=== PATIENT | female | born 2000 | race Caucasian/White ===

== ENCOUNTER 2019-06-08 06:24 | Day surgery (SDC) | payer OTHER ==
[2019-06-07 11:46] VITALS: BMI 21.0
[~2019-06-08 06:24] MED LIST: DEXAMETHASONE SOD PHOSPHATE 10 MG/ML 1 ML VIAL IV ONE; HEPARIN SODIUM,PORCINE 5,000 UNIT/ML 1 ML VIAL SQ ONE; KETOROLAC 30 MG/ML 1 ML VIAL IVP SCH; LACTATED RINGERS 1,000 ML IV SCH; LIDOCAINE 1% 20 ML VIAL (10MG/ML) FOR IV START INTRADERMA PRN; MORPHINE SULFATE 2 MG/ML SYRINGE IV PRN; ONDANSETRON 4 MG/2 ML VIAL IVP ONE; ONDANSETRON 4 MG/2 ML VIAL IVP PRN; Pre Op ABX Message 1 EACH MISC MISCELLANE ONE
[2019-06-08 07:07] VITALS: BP 112/59; PULSE 71; RESP 16; TEMP 97.8
[2019-06-08] MEDS ORDERED: MIDAZOLAM (PF) 2 MG/2 ML VIAL IV ONE (07:12)
[2019-06-08] MEDS ORDERED: SCOPOLAMINE 1.5MG/72HR PATCH TRANSDERM ONE (07:16)
--- NOTE | 2019-06-08 08:00 | P.PN ---
Progress Note - Text Progress Note Date: 06/08/19 The patient's chest wall mass was reexamined. The mass appears to have resolved. I explained patient's family is most likely a cyst. The patient will be discharged home. Her surgical procedure was canceled. She will follow-up in the office as needed.
== END 2019-06-08 08:05 | disposition home or self-care (01) ==
LOC: OR 06:24
PROVIDERS: ATTEND Surgery
DX: D17.1 Benign lipomatous neoplasm of skin and subcutaneous tissue of trunk (principal); Z53.8 Procedure and treatment not carried out for other reasons
CPT/HCPCS: 11400; J1644; J1100; J2405; J2250

== ENCOUNTER 2023-04-15 23:05 | Emergency (ER) | payer OTHER ==
[2023-04-15 23:13] VITALS: RESP 18; TEMP 98.9
[2023-04-16] MEDS ORDERED: AMOXIC-POT CLAV 875-125MG 1 EACH TAB PO STA (00:25)
[2023-04-16] MEDS ORDERED: CYCLOBENZAPRINE 10MG STARTER 3 TAB BTL PO STA (00:25)
--- NOTE | 2023-04-16 00:25 | ED ---
General Adult HPI - General Chief complaint: Dental/Oral Stated complaint: Headache, dental pain Time Seen by Provider: 04/15/23 23:22 Source: family Mode of arrival: ambulatory Limitations: no limitations - History of Present Illness Initial comments: 21-year-old female presenting with chief complaint of headache. Headache has been intermittent for several days. States that the pain goes down the right side of her neck and feels it up and tightening around her head. She also admits to dental pain on the right side. She has a known dental carry to the right lower molar. No fever, chills, difficulty breathing or swallowing, vision or hearing changes, numbness, tingling, weakness. She has full range of motion of the neck. No URI-like symptoms. - Related Data Home Medications Medication Instructions Recorded Confirmed Etonogestrel [Nexplanon] 1 implant SQ [id number] 06/07/19 06/08/19 Previous Rx's Medication Instructions Recorded Amoxic-Pot Clav 875-125Mg 1 tab PO Q12HR 7 Days #14 tab 04/16/23 [Augmentin 875-125] Cyclobenzaprine [Flexeril] 10 mg PO HS PRN #15 tab 04/16/23 Allergies Allergy/AdvReac Type Severity Reaction Status Date / Time No Known Allergies Allergy Verified 04/15/23 23:13 Review of Systems ROS Statement: Those systems with pertinent positive or pertinent negative responses have been documented in the HPI. ROS Other: All systems not noted in ROS Statement are negative. Past Medical History Past Medical History: No Reported History Additional Past Medical History / Comment(s): PRES History of Any Multi-Drug Resistant Organisms: None Reported Past Surgical History: Section Past Anesthesia/Blood Transfusion Reactions: Previous Problems w/ Anesthesia Additional Past Anesthesia/Blood Transfusion Reaction / Comment(s): took a little longer to come out after C/S(had general anesthesia) Past Psychological History: No Psychological Hx Reported Smoking Status: Never smoker Past Alcohol Use History: None Reported Past Drug Use History: None Reported - Past Family History Mother Family Medical History: Cancer Additional Family Medical History / Comment(s): skin General Exam Limitations: no limitations General appearance: alert, in no apparent distress Head exam: Present: atraumatic, normocephalic, normal inspection Eye exam: Present: normal appearance, PERRL, EOMI. Absent: scleral icterus, conjunctival injection, periorbital swelling Expanded Mouth exam: Present: tongue normal. Absent: drooling, trismus, muffled voice Teeth exam: Present: dental caries Throat exam: normal inspection Neck exam: Present: normal inspection, tenderness (Right paraspinal muscles no midline tenderness), full ROM Respiratory exam: Present: normal lung sounds bilaterally. Absent: respiratory distress, wheezes, rales, rhonchi, stridor Cardiovascular Exam: Present: regular rate, normal rhythm, normal heart sounds. Absent: systolic murmur, diastolic murmur, rubs, gallop, clicks Neurological exam: Present: alert, oriented X3, CN II-XII intact Psychiatric exam: Present: normal affect, normal mood Skin exam: Present: warm, dry, intact, normal color. Absent: rash Course Vital Signs 04/15/23 04/16/23 23:10 00:39 Temperature 98.9 F Pulse Rate 102 H 95 Respiratory 18 18 Rate Blood Pressure 135/9 128/68 O2 Sat by Pulse 100 99 Oximetry Medical Decision Making - Medical Decision Making Was pt. sent in by a medical professional or institution (, PA, [facility]ARE [facility]OC[facility], urgent care, hospital, or halfway...) When possible be specific @ -No Did you speak to anyone other than the patient for history (EMS, parent, family, police, friend...)? What history was obtained from this source @ -No Did you review nursing and triage notes (agree or disagree)? Why? @ -I reviewed and agree with nursing and triage notes Were old charts reviewed (outside hosp., previous admission, EMS record, old EKG, old radiological studies, urgent care reports/EKG's, halfway records)? Report findings @ -No old charts were reviewed Differential Diagnosis (chest pain, altered mental status, abdominal pain women, abdominal pain men, vaginal bleeding, weakness, fever, dyspnea, syncope, headache, dizziness, GI bleed, back pain, seizure, CVA, palpatations, mental health, musculoskeletal)? @ -MDM Differential Headache: Migraine, tension, cluster, carbon monoxide, central venous thrombosis, pension karma temporal arteritis, acute closure glaucoma, intercranial hemorrhage, mastoiditis, sinusitis, head injury this is not meant to be an all-inclusive list. EKG interpreted by me (3pts min.). @ -As above X-rays interpreted by me (1pt min.). @ -None done CT interpreted by me (1pt min.). @ -None done U/S interpreted by me (1pt. min.). @ -None done What testing was considered but not performed or refused? (CT, X-rays, U/S, labs)? Why? @ -None What meds were considered but not given or refused? Why? @ -None Did you discuss the management of the patient with other professionals (professionals i.e. , PA, CARE ADVOCATE, lab, RT, psych nurse, social insurance administrator, diesel technician, teacher, police officer booking, manager rn case)? Give summary @ -No Was smoking cessation discussed for >3mins.? @ -No Was critical care preformed (if so, how long)? @ -No Were there social determinants of health that impacted care today? How? (Homelessness, low income, unemployed, alcoholism, drug addiction, transportation, low edu. Level, literacy, decrease access to med. care, prison, rehab)? @ -No Was there de-escalation of care discussed even if they declined (Discuss DNR or withdrawal of care, Hospice)? DNR status @ -No What co-morbidities impacted this encounter? (DM, HTN, Smoking, COPD, CAD, Cancer, CVA, ARF, Chemo, Hep., AIDS, mental health diagnosis, sleep apnea, morbid obesity)? @ -None Was patient admitted / discharged? Hospital course, mention meds given and route, prescriptions, significant lab abnormalities, going to OR and other pertinent info. @ -[id number] female presenting with chief complaint of headache and dental pain. On physical examination there is right-sided paraspinal muscle tenderness in the cervical region, no midline tenderness. Patient has full range of motion of the neck and is able to touch chin to chest without difficulty. No fevers or chills. Dental caries noted with large caries noted to the right lower molar. Patient is likely experiencing symptoms of tension headache, muscle spasm felt on palpation of the neck and she is given Flexeril for home. Also treating for potential dental abscess with augmentin, states that she is trying to get with her dentist. Follow-up with PCP. Report back to ER with any new or worsening symptoms. Discussed return parameters and answered all questions. Patient conveyed verbal understanding and agreed to the plan. I discussed this case in detail with my attending Dr. Goodman Undiagnosed new problem with uncertain prognosis? @ -No Drug Therapy requiring intensive monitoring for toxicity (Heparin, Nitro, Insulin, Cardizem)? @ -No Were any procedures done? @ -No Diagnosis/symptom? @ -tension headache, dental abscess Acute, or Chronic, or Acute on Chronic? @ -Acute Uncomplicated (without systemic symptoms) or Complicated (systemic symptoms)? @ -Uncomplicated Side effects of treatment? @ -No Exacerbation, Progression, or Severe Exacerbation? @ -No Poses a threat to life or bodily function? How? (Chest pain, [place], GA, pneumonia, PE, COPD, DKA, ARF, appy, cholecystitis, CVA, Diverticulitis, Homicidal, Suicidal, threat to staff... and all critical care pts) @ -No Disposition Clinical Impression: Tension headache, Dental abscess Disposition: HOME SELF-CARE Condition: Good Instructions (If sedation given, give patient instructions): Dental Abscess (ED), Tension Headache (ED), Toothache (ED) Additional Instructions: Follow-up with PCP and dentist. Report back to ER with any new or worsening symptoms. Take medication as prescribed. Do not take cyclobenzaprine before driving or operating heavy machinery as it may cause drowsiness. Prescriptions: Amoxic-Pot Clav 875-125Mg [Augmentin 875-125] 1 tab PO Q12HR 7 Days #14 tab Cyclobenzaprine [Flexeril] 10 mg PO HS PRN #15 tab PRN Reason: Spasms Is patient prescribed a controlled substance at d/c from ED?: No Referrals: Nishant Price MD [Primary Care Provider] - 1-2 days Forms: [employer] Time of Disposition: 00:25
[2023-04-16 01:16] VITALS: BP 128/68; PULSE 95
== END 2023-04-16 00:39 | disposition home or self-care (01) ==
LOC: EC 23:05
DX: G44.209 Tension-type headache, unspecified, not intractable (principal); K04.7 Periapical abscess without sinus
CPT/HCPCS: 99283

== ENCOUNTER 2023-04-19 12:14 | Emergency (ER) | payer OTHER ==
[2023-04-19] MEDS ORDERED: KETOROLAC 15 MG/ML 1 ML VIAL IVP STA (13:06)
[2023-04-19] MEDS ORDERED: AMPICILLIN-SULBACTAM 3 GM in SODIUM CHLORIDE 0.9% 100 ML IVPB STA (13:06)
[2023-04-19] MEDS ORDERED: ONDANSETRON 4 MG/2 ML VIAL IVP STA (13:06)
--- NOTE | 2023-04-19 13:13 | ED ---
ENT HPI - General Chief complaint: Dental/Oral Stated complaint: Antibiotic By IV,called ahead Time Seen by Provider: 04/19/23 12:44 Source: patient, RN notes reviewed Mode of arrival: ambulatory Limitations: no limitations - History of Present Illness Initial comments: This is a 22-year-old female who presents to the emergency department for dental pain and IV antibiotics. Patient was evaluated here 3 days ago for a headache and diagnosed with a muscle strain as well as a right dental abscess. She was started on Flexeril and Augmentin. Prior to her visit here, she had gone to [facility] 4 times. Each time she had blood work done and during 2 of the visits had CT scans of her head, all revealing no acute findings. Patient was told that she had migraines and was discharged home without any answers, which prompted her to come to the emergency department here 3 days ago and she did follow up with oral surgery earlier today. States that she started to develop visual changes in the right eye and hearing loss in the right ear. She communicated these findings to her oral surgeon, who advised that she needed to get a dose of IV antibiotics in the emergency department due to concern for permanent nerve damage. He said that he would not remove her teeth until receiving IV antibiotics. She sees an oral surgeon at [facility] in [place], [place], but does not recall who she sees. Currently complaining of severe pain as well as nausea. Denies any fevers, chills, sore throat, cough, dyspnea, chest pain, palpitations, abdominal pain, vomiting, diarrhea, or back pain. MD complaint: tooth pain - Related Data Home Medications Medication Instructions Recorded Confirmed Etonogestrel [Nexplanon] 1 implant SQ [id number] 06/07/19 06/08/19 Previous Rx's Medication Instructions Recorded Amoxic-Pot Clav 875-125Mg 1 tab PO Q12HR 7 Days #14 tab 04/16/23 [Augmentin 875-125] Cyclobenzaprine [Flexeril] 10 mg PO HS PRN #15 tab 04/16/23 Allergies Allergy/AdvReac Type Severity Reaction Status Date / Time diphenhydramine AdvReac Unknown Verified 04/19/23 12:44 [From Benmarianl] Review of Systems ROS Statement: Those systems with pertinent positive or pertinent negative responses have been documented in the HPI. ROS Other: All systems not noted in ROS Statement are negative. Past Medical History Past Medical History: No Reported History Additional Past Medical History / Comment(s): PRES History of Any Multi-Drug Resistant Organisms: None Reported Past Surgical History: Section Past Anesthesia/Blood Transfusion Reactions: Previous Problems w/ Anesthesia Additional Past Anesthesia/Blood Transfusion Reaction / Comment(s): took a little longer to come out after C/S(had general anesthesia) Past Psychological History: No Psychological Hx Reported Smoking Status: Never smoker Past Alcohol Use History: None Reported Past Drug Use History: None Reported - Past Family History Mother Family Medical History: Cancer Additional Family Medical History / Comment(s): skin General Exam Limitations: no limitations General appearance: alert, in no apparent distress Head exam: Present: atraumatic, normocephalic, normal inspection ENT exam: Present: other (Palpable right-sided dental abscess and fullness to the right cheek. No tongue elevation or swelling of the floor of the mouth.) Respiratory exam: Present: normal lung sounds bilaterally. Absent: respiratory distress, wheezes, rales, rhonchi, stridor Cardiovascular Exam: Present: regular rate, normal rhythm, normal heart sounds. Absent: systolic murmur, diastolic murmur, rubs, gallop, clicks Neurological exam: Present: alert, oriented X3, CN II-XII intact Psychiatric exam: Present: normal affect, normal mood Skin exam: Present: warm, dry, intact, normal color. Absent: rash Course Vital Signs 04/19/23 04/19/23 12:38 15:02 Temperature 99.6 F 99.0 F Pulse Rate 90 81 Respiratory 18 16 Rate Blood Pressure 113/80 109/74 O2 Sat by Pulse 98 100 Oximetry Medical Decision Making - Medical Decision Making This is a 22-year-old female who presents to the emergency department for dental pain and IV antibiotics. Was pt. sent in by a medical professional or institution? @ -No Did you speak to anyone other than the patient for history? @ -No Did you review nursing and triage notes? @ -Yes, and I agree, it is accurate with regards to the patient's symptoms. Were old charts reviewed? @ -No Differential Diagnosis? @ -Differential Dental Pain: Dental abscess, chipped tooth, dental carries, rachel's angina, trigeminal neuralgia, this is not meant to be an all-inclusive list. EKG interpreted by me (3pts min.)? @ -Not obtained X-rays interpreted by me (1pt min.)? @ -Not obtained CT interpreted by me (1pt min.)? @ -Not obtained U/S interpreted by me (1pt. min.)? @ -Not obtained What testing was considered but not performed? (CT, X-rays, U/S, labs)? Why? @ -None What meds were considered but not given? Why? @ -None Did you discuss the management of the patient with other professionals? @ -No Did you reconcile home meds? @ -No Was smoking cessation discussed for >3mins.? @ -No Was critical care preformed (if so, how long)? @ -No Were there social determinants of health that impacted care today? How? (Homel essness, low income, unemployed, alcoholism, drug addiction, transportation, low edu. Level, literacy, decrease access to med. care, senior living, rehab)? @ -No Was there de-escalation of care discussed even if they declined? (Discuss DNR or withdrawal of care, Hospice)? @ -No What co-morbidities impacted this encounter? (DM, HTN, Smoking, COPD, CAD, Cancer, CVA, Hep., AIDS, mental health diagnosis, sleep apnea, morbid obesity)? @ -None Was patient admitted / discharged? @ -Discharged. Lab work obtained and found to be nonactionable. She was given a dose of IV Unasyn in the emergency department as requested. She was also given a dose of Toradol, but is unsure if this was helpful. Patient requested discharge home after the Unasyn, and she is instructed to continue taking the Augmentin as prescribed and to alternate with ibuprofen and Tylenol as needed for pain relief. She'll otherwise follow up with oral surgery for definitive management. Undiagnosed new problem with uncertain prognosis? @ -None Drug Therapy requiring intensive monitoring for toxicity (Heparin, Nitro, Insulin, Cardizem)? @ -None Were any procedures done? @ -None Diagnosis/symptom? @ -Dental abscess Acute, or Chronic, or Acute on Chronic? @ -Acute Uncomplicated (without systemic symptoms) or Complicated (systemic symptoms)? @ -Uncomplicated Side effects of treatment? @ -None Exacerbation, Progression, or Severe Exacerbation] @ -Not applicable Poses a threat to life or bodily function? @ -No Return precautions reviewed in depth, the patient is instructed to return to the emergency department with any new, worsening, or concerning symptoms. Patient verbalized understanding. This case was discussed in detail with the attending ED physician, Dr. Hoyt. Presentation, findings, and treatment plan discussed in detail as well. - Lab Data Result diagrams: 04/19/23 13:17 Lab Results 04/19/23 04/19/23 Range/Units 13:17 13:17 WBC 8.2 (3.8-10.6) k/uL RBC 4.54 (3.80-5.40) m/uL Hgb 13.0 (11.4-16.0) gm/dL Hct 37.3 (34.0-46.0) % MCV 82.1 (80.0-100.0) fL MCH 28.7 (25.0-35.0) pg MCHC 35.0 (31.0-37.0) g/dL RDW 12.7 (11.5-15.5) % Plt Count 187 (150-450) k/uL MPV 7.6 Neutrophils % 61 % Lymphocytes % 32 % Monocytes % 5 % Eosinophils % 1 % Basophils % 0 % Neutrophils # 5.0 (1.3-7.7) k/uL Lymphocytes # 2.7 (1.0-4.8) k/uL Monocytes # 0.4 (0-1.0) k/uL Eosinophils # 0.1 (0-0.7) k/uL Basophils # 0.0 (0-0.2) k/uL Plasma Lactic Acid Dez 0.7 (0.7-2.0) mmol/L Disposition Clinical Impression: Dental abscess Disposition: HOME SELF-CARE Instructions (If sedation given, give patient instructions): Dental Abscess (ED) Additional Instructions: Return to the emergency department with any new, worsening, or concerning symptoms. Alternate with ibuprofen and Tylenol as needed for pain relief. Follow-up with your oral surgeon for definitive management. Is patient prescribed a controlled substance at d/c from ED?: No Referrals: Nishant Price MD [Primary Care Provider] - 1-2 days
[2023-04-19 13:55] LABS: Basophils % (A) 0 %; Eosinophils # (A) 0.1 k/uL (0-0.7); Eosinophils % (A) 1 %; HCT 37.3 % (34.0-46.0); Lymphocytes # (A) 2.7 k/uL (1.0-4.8); Lymphocytes % (A) 32 %; MCH 28.7 pg (25.0-35.0); MCV 82.1 fL (80.0-100.0); Mean Platelet Volume 7.6; Monocytes # (A) 0.4 k/uL (0-1.0); Monocytes % (A) 5 %; Neutrophils % (A) 61 %; Platelet Count 187 k/uL (150-450); RBC 4.54 m/uL (3.80-5.40); RDW 12.7 % (11.5-15.5); WBC 8.2 k/uL (3.8-10.6)
[2023-04-19 14:23] LABS: ALT 13 U/L (4-34); AST 17 U/L (14-36); African American GFR (CKD) >90 (>60 ml/min/1.73 sqM); Albumin 4.2 g/dL (3.5-5.0); Alkaline Phosphatase 56 U/L (38-126); Anion Gap 8 mmol/L; Blood Urea Nitrogen 16 mg/dL (7-17); C Reactive Protein <0.5 mg/dL (<1.0); Calcium 9.1 mg/dL (8.4-10.2); Carbon Dioxide 24 mmol/L (22-30); Chloride 106 mmol/L (98-107); Glucose 87 mg/dL (74-99); Non-African American GFR(CKD) >90 (>60 ml/min/1.73 sqM); Potassium 3.8 mmol/L (3.5-5.1); Sodium 138 mmol/L (137-145); Total Bilirubin 0.6 mg/dL (0.2-1.3); Total Protein 7.3 g/dL (6.3-8.2)
[2023-04-19] MEDS ORDERED: ACET/COD 300 MG/30 MG STARTER PACK 6 TAB BTL PO STA (14:46)
[2023-04-19] MEDS ORDERED: IBUPROFEN 600 MG STARTER PACK 4 TAB BTL PO STA (14:46)
[2023-04-19 15:03] VITALS: BP 109/74; PULSE 81; RESP 16; TEMP 99
== END 2023-04-19 15:15 | disposition home or self-care (01) ==
LOC: EC 12:14
DX: K04.7 Periapical abscess without sinus (principal)
CPT/HCPCS: 36415; 80053; 83605; 85025; 86140; 99283; 96365; 96375 ×2; J2405; J0295; J1885

== ENCOUNTER → 2023-05-25 | Outpatient (CLI) | payer OTHER ==
--- NOTE | 2023-05-25 23:20 | MR ---
EXAMINATION TYPE: MR brain wo/w con DATE OF EXAM: 05/25/2023 COMPARISON: No comparison studies are available at this location. HISTORY: Head pain , Rt eye pressure with fuzzy vision, Ears ache Rt side worse CONTRAST: Performed utilizing 6 mL intravenous Gadavist gadolinium contrast. TECHNIQUE: Multiplanar, multiecho imaging on a 3.0 Yesenia magnet is performed through the brain. Stud y is performed within 24 hours of arrival to the hospital. The craniovertebral junction is normal. The pituitary is normal. Diffusion-weighted imaging is performed. No abnormal hyperintensity is present to suggest an acute i ntracranial infarct or acute ischemic change. There is a tiny subcortical punctate white matter change which is nonspecific. Series 501 image 17. M igraine headaches could be considered. Microvascular ischemic change or vasculitis could be considere d. Ventricles and sulci are appropriate for the patient age. Paranasal sinuses and mastoid air cells are clear. No suspicious fluid accumulation within the mastoi d air cells is evident. Internal auditory canals as visualized appear unremarkable Following contrast administration, no suspicious enhancement is evident. IMPRESSIONS: 1. No suspicious acute changes. Postcontrast MRI brain. 2. Punctate white matter change is nonspecific. Consider migraine headaches.
== END | disposition home or self-care (01) ==
LOC: RADMRIMAIN 19:26
PROVIDERS: ATTEND Family Medicine
DX: H57.89 Other specified disorders of eye and adnexa (principal); H92.01 Otalgia, right ear; R90.82 White matter disease, unspecified; R51.9 Headache, unspecified
CPT/HCPCS: 70553; A9585

== ENCOUNTER 2025-02-21 22:27 | Emergency (ER) | payer OTHER ==
[2025-02-21 22:31] VITALS: RESP 18
--- NOTE | 2025-02-21 22:43 | ED ---
General Adult HPI - General Source: patient, RN notes reviewed Mode of arrival: ambulatory <Jaki Washington - Last Filed: 02/21/25 23:57> <Jamaica Nix - Last Filed: 02/22/25 01:42> - General Chief complaint: Extremity Problem,Nontraumatic Stated complaint: Leg pain Time Seen by Provider: 02/21/25 22:33 - History of Present Illness Initial comments: 24-year-old female with no reported medical conditions presenting to emergency department with nontraumatic left knee pain that started this morning when she woke up. Patient states that she has full mobility of the knee including flexion, extension and mild twisting her wrist states that she has intermittent pain while applying pressure to the knee. Patient states that she works long hours on her shift upwards of 15 hours and has 2 large dogs at home and does not know if she strained her knee from this. Denies any enticing injury that may have initiated the symptoms. Denies previous surgeries of the left knee. Denies swelling, pain of the calf, difficulty breathing, heart palpitations. Took Motrin earlier today. (Jaki Washington) - Related Data Home Medications Medication Instructions Recorded Confirmed Etonogestrel [Nexplanon] 1 implant SQ [id number] 06/07/19 06/08/19 Previous Rx's Medication Instructions Recorded Amoxic-Pot Clav 875-125Mg 1 tab PO Q12HR 7 Days #14 tab 04/16/23 [Augmentin 875-125] Cyclobenzaprine [Flexeril] 10 mg PO HS PRN #15 tab 04/16/23 Ibuprofen [Motrin] 800 mg PO Q8HR PRN #30 tab 04/22/23 Allergies Allergy/AdvReac Type Severity Reaction Status Date / Time diphenhydramine AdvReac Unknown Verified 02/21/25 22:31 [From Benadryl] Review of Systems ROS Other: All systems not noted in ROS Statement are negative. <Jaki Washington - Last Filed: 02/21/25 23:57> ROS Other: All systems not noted in ROS Statement are negative. <Jamaica Nix - Last Filed: 02/22/25 01:42> ROS Statement: Those systems with pertinent positive or pertinent negative responses have been documented in the HPI. Past Medical History Past Medical History: No Reported History Additional Past Medical History / Comment(s): PRES History of Any Multi-Drug Resistant Organisms: None Reported Past Surgical History: Section Past Anesthesia/Blood Transfusion Reactions: Previous Problems w/ Anesthesia Additional Past Anesthesia/Blood Transfusion Reaction / Comment(s): took a little longer to come out after C/S(had general anesthesia) Past Psychological History: No Psychological Hx Reported Smoking Status: Never smoker Past Alcohol Use History: None Reported Past Drug Use History: None Reported - Past Family History Mother Family Medical History: Cancer Additional Family Medical History / Comment(s): skin <Jaki Washington - Last Filed: 02/21/25 23:57> General Exam General appearance: alert, in no apparent distress Neck exam: Present: normal inspection. Absent: tenderness, meningismus, lymphadenopathy Respiratory exam: Present: normal lung sounds bilaterally. Absent: respiratory distress, wheezes, rales, rhonchi, stridor Cardiovascular Exam: Present: regular rate, normal rhythm, normal heart sounds. Absent: systolic murmur, diastolic murmur, rubs, gallop, clicks GI/Abdominal exam: Present: soft, normal bowel sounds. Absent: distended, tenderness, guarding, rebound, rigid Left Knee exam: Present: full ROM, tenderness (over patella). Absent: swelling, ecchymosis, deformity, crepitus, erythema, effusion Neurovascular tendon exam: Present: no vascular compromise Back exam: Present: normal inspection <Jaki Washington - Last Filed: 02/21/25 23:57> Course Vital Signs 02/21/25 02/22/25 22:29 00:54 Temperature 98.6 F 97.7 F Pulse Rate 78 100 Respiratory 18 18 Rate Blood Pressure 127/86 114/75 O2 Sat by Pulse 100 98 Oximetry Medical Decision Making <Jaki Washington - Last Filed: 02/21/25 23:57> - Radiology Data Radiology results: report reviewed, image reviewed <Jamaica Nix - Last Filed: 02/22/25 01:42> - Medical Decision Making Was pt. sent in by a medical professional or institution (, PA, WELDING MACHINE OPERATOR FRICTION, urgent care, hospital, or retirement...) When possible be specific @ -[No] Did you speak to anyone other than the patient for history (EMS, parent, family, police, friend...)? What history was obtained from this source @ -[No] Did you review nursing and triage notes (agree or disagree)? Why? @ -[I reviewed and agree with nursing and triage notes] Were old charts reviewed (outside hosp., previous admission, EMS record, old EKG, old radiological studies, urgent care reports/EKG's, retirement records)? Report findings @ -[No old charts were reviewed] Differential Diagnosis (chest pain, altered mental status, abdominal pain women, abdominal pain men, vaginal bleeding, weakness, fever, dyspnea, syncope, headache, dizziness, GI bleed, back pain, seizure, CVA, palpatations, mental health, musculoskeletal)? @ -Differential Musculoskeletal Muscular strain, contusion, ligament sprain, fracture, arthritis, septic arthritis, bursitis, cellulitis, muscle spasm, nerve compression, DVT, arterial occlusion, herpes zoster, electrolyte abnormality, tumor.... This is not meant to be in all inclusive list EKG interpreted by me (3pts min.). @ -None X-rays interpreted by me (1pt min.). @ -[None done] CT interpreted by me (1pt min.). @ -[None done] U/S interpreted by me (1pt. min.). @ -[None done] What testing was considered but not performed or refused? (CT, X-rays, U/S, labs)? Why? @ -[None] What meds were considered but not given or refused? Why? @ -[None] Did you discuss the management of the patient with other professionals (professionals i.e. , PA, WELDING MACHINE OPERATOR FRICTION, lab, RT, psych nurse, social media marketing analyst, lifestyle block farmer, teacher, protective services officer, medical case worker)? Give summary @ -[No] Was smoking cessation discussed for >3mins.? @ -[No] Was critical care preformed (if so, how long)? @ -[No] Were there social determinants of health that impacted care today? How? (Home lessness, low income, unemployed, alcoholism, drug addiction, transportation, low edu. Level, literacy, decrease access to med. care, custodial, rehab)? @ -[No] Was there de-escalation of care discussed even if they declined (Discuss DNR or withdrawal of care, Hospice)? DNR status @ -[No] What co-morbidities impacted this encounter? (DM, HTN, Smoking, COPD, CAD, Cancer, CVA, ARF, Chemo, Hep., AIDS, mental health diagnosis, sleep apnea, morbid obesity)? @ -[None] Was patient admitted / discharged? Hospital course, mention meds given and route, prescriptions, significant lab abnormalities, going to OR and other pertinent info. @ -24-year-old female presents emergency department with complaints of nontraumatic left leg pain. There are no signs of erythema or effusion on examination. Full range of motion is assessed and is intact of the left knee. There is no pain elicited to the knee when applying varus and valgus stress. Patient is provided with Tylenol for pain relief and will undergo x-ray imaging for further evaluation. patient is signed out to Jamaica Nix PA-C pending XR results and disposition. Undiagnosed new problem with uncertain prognosis? @ -[No] Drug Therapy requiring intensive monitoring for toxicity (Heparin, Nitro, Insulin, Cardizem)? @ -[No] Were any procedures done? @ -[No] Diagnosis/symptom? @ -[default] Acute, or Chronic, or Acute on Chronic? @ -[default] Uncomplicated (without systemic symptoms) or Complicated (systemic symptoms)? @ -[default] Side effects of treatment? @ -[No] Exacerbation, Progression, or Severe Exacerbation? @ -[No] Poses a threat to life or bodily function? How? (Chest pain, [place], [place], pneumonia, PE, COPD, DKA, ARF, appy, cholecystitis, CVA, Diverticulitis, Homicidal, Suicidal, threat to staff... and all critical care pts) @ -[No] (Jaki Washington) Case signed out to me by Jaki Washington PA-C, pending x-ray results. X-ray of the left knee reveals no acute process. Knee immobilizer provided to be used if needed. Advised ibuprofen and Tylenol as needed for pain relief as well as ice and elevation. Also advised she follow-up with her primary care provider for reevaluation. Patient discharged home in stable condition. Case discussed with ED attending Dr. Goodman. Return precautions reviewed in depth, the patient is instructed to return to the emergency department with any new, worsening, or concerning symptoms. Patient verbalized understanding. (Jamaica Nix) Disposition <Jaki Washington - Last Filed: 02/21/25 23:57> Is patient prescribed a controlled substance at d/c from ED?: No Time of Disposition: 00:32 <Jamacia Nix - Last Filed: 02/22/25 01:42> Clinical Impression: Left knee pain Disposition: HOME SELF-CARE Instructions (If sedation given, give patient instructions): Knee Pain (ED) Additional Instructions: Return to the emergency department with any new, worsening, or concerning symptoms. Alternate with ibuprofen and Tylenol as needed for pain relief. Follow up with your primary care provider in 1-2 days. Referrals: Karri Wilhelm MD [Primary Care Provider] - 1-2 days
[2025-02-21] MEDS: ACETAMINOPHEN TAB 500 MG TAB PO STA (23:02)
--- NOTE | 2025-02-22 00:15 | XR ---
EXAM: XR Left Knee, 3 Views CLINICAL HISTORY: ITS.REASON XR Reason: pain TECHNIQUE: Three views of the left knee. COMPARISON: No relevant prior studies available. FINDINGS: Bones/joints: Unremarkable. No acute fracture. No dislocation. Soft tissues: Unremarkable. IMPRESSION: Normal left knee x-rays.
[2025-02-22 00:55] VITALS: BP 114/75; PULSE 100; TEMP 97.7
== END 2025-02-22 00:55 | disposition home or self-care (01) ==
LOC: EC 22:27
DX: M25.562 Pain in left knee (principal); Z88.8 Allergy status to other drugs, medicaments and biological substances
CPT/HCPCS: 99283